=== PATIENT | male | born 1955 | race Caucasian/White ===

== ENCOUNTER → 2023-05-02 09:32 | Outpatient (CLI) | payer MEDICARE, OTHER, SELFPAY | PROVIDERS: PCP Internal Medicine; Referring Provider Internal Medicine Cardiovascular Disease; Visit Provider Internal Medicine Cardiovascular Disease | DX: R06.09 Other forms of dyspnea (principal); J43.8 Other emphysema; I48.21 Permanent atrial fibrillation | CPT/HCPCS: 94060; 94726; 94729 ==

== ENCOUNTER → 2023-12-18 10:23 | Outpatient (CLI) | payer MEDICARE, OTHER, SELFPAY ==
--- NOTE | 2023-12-18 | DI.US.S_ITS ---
PROCEDURE: US RENAL COMPLETE INDICATIONS: Nocturia TECHNIQUE: Real-time scanning was performed of the kidneys and bladder, with image documentation. COMPARISON: None. FINDINGS: Kidneys: The hus[place] kidneys are atrophic in size with echogenic echotexture and minimal vascularity. The right hus[place] kidney measures 7.4 cm with a cortical thickness of 0.5 cm. The left hus[place] kidney measures 8.2 cm with a cortical thickness of 0.4 cm. Sub cm cortical simple cysts are present bilaterally. 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 The right transplanted kidney measures 9.5 cm with cortical thickness of 0.4 cm. Simple cysts up to 1.5 cm are present at the superior pole. There is a lack of significant internal vascularity. The transplanted right renal parenchyma is echogenic. The left transplant kidney measures 12.5 cm with a cortical thickness of 1.4 cm. There is no hydronephrosis or urolithiasis. Bladder: Pre-void bladder volume is 85 mL. Post-void residual is 73 mL. Pre-void images demonstrate no intraluminal masses or stones. On prevoid images, the left transplanted renal ureter is mildly dilated up to 8 mm. Miscellaneous: There is a small amount of perihepatic ascites and a possible right pleural effusion. IMPRESSION: 1. Insufficient evaluation for nocturia. CT urogram with and without contrast recommended for optimal evaluation. 2. Atrophic appearance of the huslia kidneys and right transplanted kidneys. 3. Hypertrophic (likely compensatory) appearance of the left transplant kidney without hydronephrosis or urolithiasis. 4. Incidentally noted perihepatic ascites and small right pleural effusion. Dictated by: Liu Beasley M.D. on 12/18/2023 at 13:34 Approved by: Liu Beasley M.D. on 12/18/2023 at 13:45
== END ==
PROVIDERS: PCP Internal Medicine; Referring Provider Specialist; Visit Provider Specialist
DX: N28.1 Cyst of kidney, acquired (principal); N26.1 Atrophy of kidney (terminal); R35.1 Nocturia; Z94.0 Kidney transplant status; J90 Pleural effusion, not elsewhere classified; R18.8 Other ascites
CPT/HCPCS: 76770